=== PATIENT | male | born 1970 | race Caucasian/White ===

== ENCOUNTER 2025-08-09 20:36 | Inpatient (IN) | payer MEDICAID, OTHER ==
[2025-08-09] MEDS ORDERED: Ondansetron PF 4 MG/2 ML Vial IVP PRN (22:32)
[2025-08-09] MEDS ORDERED: Dextrose 50% Abboject 50 ML SYRINGE SLOW IVP PRN (22:34)
[2025-08-09] MEDS ORDERED: Glucagon 1 MG/ML KIT IM PRN (22:34)
[2025-08-09 22:35] VITALS: BMI 30.2
[2025-08-10 03:48] LABS: #Basophils 0.03 10x3/uL (0.0-0.2); #Eosinophils 0.11 10x3/uL (0.0-0.7); #Monocytes 0.73 10x3/uL (0.11-0.59); #Neutrophils 3.38 10x3/uL (1.40-6.50); %Basophils 0.4 % (0.0-1.0); %Eosinophils 1.6 % (0.0-10.0); %Lymphocytes 36.4 % (21.0-51.0); %Monocytes 10.9 % (0.0-10.0); %Neutrophils 50.4 % (42.0-75.0); Hematocrit 29.0 % (42.0-52.0); Hemoglobin 9.7 g/dL (14.0-18.0); Mean Corpuscular Hemoglobin 29.0 pg (27.0-31.0); Mean Corpuscular Volume 86.6 fL (78.0-98.0); Platelet Count 224 10x3/uL (130-400); Red Blood Cell (RBC) Count 3.35 mill/uL (4.70-6.10); White Blood Cell (WBC) Count 6.71 10x3/uL (4.8-10.8)
[2025-08-10 04:05] LABS: Anion Gap 15 mmol/L (10-20); BUN (Urea Nitrogen) 60 mg/dL (8.4-25.7); Calc. Creatinine Clearance 35 mL/min (70-130); Calcium 8.5 mg/dL (7.8-10.44); Carbon Dioxide 27 mmol/L (22-29); Chloride 105 mmol/L (98-107); Glucose 106 mg/dL (70-105); Magnesium 2.1 mg/dL (1.6-2.6); Potassium 4.2 mmol/L (3.5-5.1); Sodium 143 mmol/L (136-145)
[2025-08-10] MEDS ORDERED: Furosemide 20 MG (2 mL) VIAL SLOW IVP SCH (06:00)
[2025-08-10] MEDS: Heparin 5,000 UNITS/ML VIAL SC SCH (10:23)
[2025-08-10] MEDS: Gabapentin 100 MG CAP PO SCH (10:24)
[2025-08-10] MEDS: Metoprolol Succinate XL 25 MG ER.TAB PO SCH (10:24)
[2025-08-10] MEDS: Aspirin 81 mg Enteric Coated Tablet PO SCH (10:25)
[2025-08-10 14:22] LABS: Bacteria/HPF None Seen HPF (None Seen); Glucose, Urine (Dipstick) 70 mg/dL (Negative); Leukocyte Negative Leu/uL (Negative); Protein, Urine (Dipstick) 200 mg/dL (Neg-Trace); RBC/HPF 0-3 HPF (0-3); Specific Gravity, Urine 1.012 (1.002-1.036); WBC/HPF 0-3 HPF (0-3)
[2025-08-10 14:30] LABS: Sodium, Urine 106.0 mmol/L (Not Available); Urea Nitrogen, Random Urine 415.0 mg/dl
[2025-08-10] MEDS: Rosuvastatin 10 MG TAB PO SCH (20:42)
[2025-08-11 03:44] LABS: #Basophils Less than 0.03 10x3/uL (0.0-0.2); #Eosinophils 0.11 10x3/uL (0.0-0.7); #Monocytes 0.67 10x3/uL (0.11-0.59); #Neutrophils 3.37 10x3/uL (1.40-6.50); %Basophils 0.3 % (0.0-1.0); %Eosinophils 1.7 % (0.0-10.0); %Lymphocytes 37.1 % (21.0-51.0); %Monocytes 10.1 % (0.0-10.0); %Neutrophils 50.6 % (42.0-75.0); Hematocrit 29.5 % (42.0-52.0); Hemoglobin 9.6 g/dL (14.0-18.0); Mean Corpuscular Hemoglobin 28.3 pg (27.0-31.0); Mean Corpuscular Volume 87.0 fL (78.0-98.0); Platelet Count 228 10x3/uL (130-400); Red Blood Cell (RBC) Count 3.39 mill/uL (4.70-6.10); White Blood Cell (WBC) Count 6.65 10x3/uL (4.8-10.8)
[2025-08-11 04:21] LABS: Anion Gap 14 mmol/L (10-20); BUN (Urea Nitrogen) 62 mg/dL (8.4-25.7); Calc. Creatinine Clearance 34 mL/min (70-130); Calcium 8.5 mg/dL (7.8-10.44); Carbon Dioxide 26 mmol/L (22-29); Chloride 108 mmol/L (98-107); Glucose 119 mg/dL (70-105); Magnesium 2.1 mg/dL (1.6-2.6); Potassium 4.3 mmol/L (3.5-5.1); Sodium 144 mmol/L (136-145)
[2025-08-11] MEDS: Metoprolol Succinate XL 25 MG ER.TAB PO SCH (10:04)
[2025-08-11 10:11] LABS: Iron 48 ug/dL (65-175); Iron Binding Capacity, Total 190 mcg/dL (261-462)
[2025-08-11] MEDS: Albumin 25% 25 GM (100 mL) BOT IVPB SCH (12:22)
[2025-08-11] MEDS: Sodium Ferric Gluconate 250 MG in Sodium Chloride 0.9% 250 ML 250 ML IVPB SCH (13:55)
[2025-08-11] MEDS: EPOETIN ALFA-EPBX (ESRD) 10,000 UNITS/ML VIAL SC SCH (13:55)
[2025-08-11 16:07] VITALS: BMI 29.2
[2025-08-12 05:36] LABS: Albumin 3.6 g/dL (3.1-4.5); Anion Gap 14 mmol/L (10-20); BUN (Urea Nitrogen) 58 mg/dL (8.4-25.7); BUN/Creatinine Ratio 22.05; Calc. Creatinine Clearance 38 mL/min (70-130); Calcium 8.7 mg/dL (7.8-10.44); Carbon Dioxide 24 mmol/L (22-29); Chloride 112 mmol/L (98-107); Glucose 82 mg/dL (70-105); Potassium 4.8 mmol/L (3.5-5.1); Sodium 145 mmol/L (136-145)
[2025-08-12] MEDS: Metoprolol Succinate XL 25 MG ER.TAB PO SCH (08:12)
[2025-08-12] MEDS: hydrALAZINE 10 MG TAB PO SCH ×2 (08:13→14:14)
[2025-08-13 05:04] LABS: #Basophils 0.03 10x3/uL (0.0-0.2); #Eosinophils 0.13 10x3/uL (0.0-0.7); #Monocytes 0.93 10x3/uL (0.11-0.59); #Neutrophils 4.55 10x3/uL (1.40-6.50); %Basophils 0.4 % (0.0-1.0); %Eosinophils 1.6 % (0.0-10.0); %Lymphocytes 29.9 % (21.0-51.0); %Monocytes 11.5 % (0.0-10.0); %Neutrophils 56.1 % (42.0-75.0); Hematocrit 28.5 % (42.0-52.0); Hemoglobin 9.1 g/dL (14.0-18.0); Mean Corpuscular Hemoglobin 28.6 pg (27.0-31.0); Mean Corpuscular Volume 89.6 fL (78.0-98.0); Platelet Count 213 10x3/uL (130-400); Red Blood Cell (RBC) Count 3.18 mill/uL (4.70-6.10); White Blood Cell (WBC) Count 8.10 10x3/uL (4.8-10.8)
[2025-08-13 05:24] LABS: Albumin 3.4 g/dL (3.1-4.5); Anion Gap 14 mmol/L (10-20); BUN (Urea Nitrogen) 60 mg/dL (8.4-25.7); BUN/Creatinine Ratio 20.00; Calc. Creatinine Clearance 33 mL/min (70-130); Calcium 8.8 mg/dL (7.8-10.44); Carbon Dioxide 22 mmol/L (22-29); Chloride 111 mmol/L (98-107); Glucose 93 mg/dL (70-105); Potassium 5.0 mmol/L (3.5-5.1); Sodium 142 mmol/L (136-145)
[2025-08-13 16:26] LABS: Sodium, Urine 89.0 mmol/L (Not Available)
[2025-08-14 05:47] LABS: Albumin 3.3 g/dL (3.1-4.5); Anion Gap 15 mmol/L (10-20); BUN (Urea Nitrogen) 58 mg/dL (8.4-25.7); BUN/Creatinine Ratio 21.72; Calc. Creatinine Clearance 35 mL/min (70-130); Calcium 8.7 mg/dL (7.8-10.44); Carbon Dioxide 23 mmol/L (22-29); Chloride 110 mmol/L (98-107); Glucose 95 mg/dL (70-105); Potassium 4.6 mmol/L (3.5-5.1); Sodium 143 mmol/L (136-145)
[2025-08-14] MEDS: Acetaminophen 325 MG TAB PO PRN (09:23)
[2025-08-14 18:03] VITALS: BP 151/79; TEMP 98.6
[2025-08-18] MEDS ORDERED: Sodium Ferric Gluconate 250 MG in Sodium Chloride 0.9% 250 ML 250 ML IVPB SCH (09:00)
== END 2025-08-14 18:30 | DRG 682 ==
LOC: 2NO 21:59 → SURG A 08-13 22:59
PROVIDERS: ADMIT Internal Medicine; ATTEND Internal Medicine
PROC: 30233J1 Transfusion of Nonautologous Serum Albumin into Peripheral Vein, Percutaneous Approach (ICD-10-PCS; principal; 2025-08-11)
DX: N17.9 Acute kidney failure, unspecified (principal); I50.33 Acute on chronic diastolic (congestive) heart failure; I13.0 Hypertensive heart and chronic kidney disease with heart failure and stage 1 through stage 4 chronic kidney disease, or unspecified chronic kidney disease; E78.5 Hyperlipidemia, unspecified; N18.32 Chronic kidney disease, stage 3b; E11.319 Type 2 diabetes mellitus with unspecified diabetic retinopathy without macular edema; E86.9 Volume depletion, unspecified; E11.22 Type 2 diabetes mellitus with diabetic chronic kidney disease; D63.1 Anemia in chronic kidney disease; L40.9 Psoriasis, unspecified; I87.2 Venous insufficiency (chronic) (peripheral); R80.9 Proteinuria, unspecified; G47.33 Obstructive sleep apnea (adult) (pediatric); Z98.890 Other specified postprocedural states; Z83.3 Family history of diabetes mellitus; Z87.891 Personal history of nicotine dependence; Z86.73 Personal history of transient ischemic attack (TIA), and cerebral infarction without residual deficits; Z88.8 Allergy status to other drugs, medicaments and biological substances; Z79.82 Long term (current) use of aspirin; Z79.899 Other long term (current) drug therapy; E11.42 Type 2 diabetes mellitus with diabetic polyneuropathy; Z86.19 Personal history of other infectious and parasitic diseases; H54.8 Legal blindness, as defined in USA; T46.1X5A Adverse effect of calcium-channel blockers, initial encounter
CPT/HCPCS: 36415; 36416; 76770; 80048; 80069; 81001; 82040; 82043; 82550; 82570; 82728; 83540; 83550; 83735; 83880; 84100; 84156; 84300; 84540; 85025; 93306; 93970; J1644; J2916; J7050; P9047; Q5105